=== PATIENT | female | born 2000 | race Caucasian/White ===

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

== ENCOUNTER 2018-11-21 11:40 | Emergency (ER) | payer BC ==
[2018-11-21 12:53] VITALS: BP 105/54
--- NOTE | 2018-11-21 13:09 | UC ---
Throat Pain/Nasal Martínez HPI - HPI Summary HPI Summary: 18-year-old female comes in with a chief complaint of sore throat since last night. Her roommate has been diagnosed with strep throat. Hurts when she swallows. She gargled with salt water which didn't help decrease the pain some. No fevers no runny nose no chest congestion. - History of Current Complaint Chief Complaint: UCGeneralIllness Stated Complaint: SORE THROAT,COUGH Time Seen by Provider: 11/21/18 12:42 Hx Last Menstrual Period: 11/11/18 Pain Intensity: 3 - Allergies/Home Medications Allergies/Adverse Reactions: Allergies Allergy/AdvReac Type Severity Reaction Status Date / Time No Known Allergies Allergy Verified 11/21/18 12:53 PMH/Surg Hx/FS Hx/Imm Hx Previously Healthy: Yes - Surgical History Surgical History: None - Family History Known Family History: Negative: Cardiac Disease, Hypertension - Social History Alcohol Use: Weekly Substance Use Type: None Smoking Status (MU): Never Smoked Tobacco Review of Systems All Other Systems Reviewed And Are Negative: Yes Constitutional: Positive: Negative Skin: Positive: Negative Eyes: Positive: Negative ENT: Positive: Sore Throat Respiratory: Positive: Negative Cardiovascular: Positive: Negative Gastrointestinal: Positive: Negative Motor: Positive: Negative Neurovascular: Positive: Negative Musculoskeletal: Positive: Negative Neurological: Positive: Negative Psychological: Positive: Negative Is Patient Immunocompromised?: No Physical Exam Triage Information Reviewed: Yes Appearance: Well-Appearing, No Pain Distress, Well-Nourished Vital Signs: Initial Vital Signs Temp 98.8 F 11/21/18 12:47 Pulse 82 11/21/18 12:47 Resp 18 11/21/18 12:47 BP 105/54 11/21/18 12:47 Pulse Ox 99 11/21/18 12:47 Vital Signs Reviewed: Yes Eye Exam: Normal Eyes: Positive: Conjunctiva Clear ENT: Positive: Pharyngeal erythema, Uvula midline Neck exam: Normal Neck: Positive: Supple Respiratory: Positive: Lungs clear, Normal breath sounds, No respiratory distress Cardiovascular: Positive: RRR Musculoskeletal Exam: Normal Musculoskeletal: Positive: Strength Intact, ROM Intact Neurological Exam: Normal Neurological: Positive: Alert, Muscle Tone Normal Psychological Exam: Normal Psychological: Positive: Age Appropriate Behavior Skin Exam: Normal Throat Pain/Nasal Course/Dx - Differential Dx/Diagnosis Provider Diagnosis: Strep pharyngitis Discharge - Sign-Out/Discharge Documenting (check all that apply): Patient Departure All imaging exams completed and their final reports reviewed: No Studies - Discharge Plan Condition: Stable Disposition: HOME Prescriptions: Amoxicillin PO (*) [Amoxicillin 875 MG (*)] 875 mg PO BID #20 tab Patient Education Materials: Strep Throat (ED) Referrals: [facility] [Outside] Additional Instructions: FOLLOW UP WITH YOUR DOCTOR IF NOT COMPLETELY IMPROVED. GET RECHECKED SOONER IF YOUR CONDITION WORSENS OR ANY QUESTIONS OR CONCERNS. - Billing Disposition and Condition Condition: STABLE Disposition: Home
== END 2018-11-21 13:12 | disposition home or self-care (01) ==
LOC: UCCORT 11:40
DX: J02.0 Streptococcal pharyngitis (principal); B95.0 Streptococcus, group A, as the cause of diseases classified elsewhere; Z20.828 Contact with and (suspected) exposure to other viral communicable diseases
CPT/HCPCS: 87651; 99212; G0463

== ENCOUNTER 2019-05-18 10:53 | Emergency (ER) | payer BC ==
--- NOTE | 2019-05-18 11:13 | UC ---
FLU HPI - HPI Summary HPI Summary: 18 yo female presents with sore throat. She tells me that over the last 2-3 days she has had fatigue, headache, body aches, and a sore throat. Sore throat worsened last night. She has felt feverish, but has not taken her temperature. Has been taking ibuprofen cold and sinus OTC with little relief. She reports having a decreased appetite, but is tolerating po well. Denies sinus symptoms, cough, rash, SOB, abdominal pain, n/v - History of Current Complaint Stated Complaint: MIGRAINES,CHILLS,ST Time Seen by Provider: 05/18/19 11:12 Hx Obtained From: Patient Hx Last Menstrual Period: 11/11/18 Onset/Duration: Gradual Onset Severity Currently: Moderate Severity Initially: Moderate Pain Intensity: 5 Pain Scale Used: 0-10 Numeric - Allergy/Home Medications Allergies/Adverse Reactions: Allergies Allergy/AdvReac Type Severity Reaction Status Date / Time No Known Allergies Allergy Verified 05/18/19 11:14 Home Medications: Home Medications Cabergoline 0.5 mg PO SEE INSTRUCTIONS 05/18/19 [History Confirmed 05/18/19] Ibuprofen/Pseudoephedrine HCl [Advil Cold & Sinus] 1 tab PO ONCE 05/18/19 [ History Confirmed 05/18/19] PMH/Surg Hx/FS Hx/Imm Hx - Additional Past Medical History Additional PMH: None - Surgical History Surgical History: None - Family History Known Family History: Negative: Cardiac Disease, Hypertension - Social History Occupation: Student Lives: Dormitory/Roommates Alcohol Use: Weekly Substance Use Type: None Smoking Status (MU): Never Smoked Tobacco Review of Systems All Other Systems Reviewed And Are Negative: No Constitutional: Positive: Fatigue, Other - Body aches Skin: Positive: Negative Eyes: Positive: Negative ENT: Positive: Sore Throat Respiratory: Positive: Negative Cardiovascular: Positive: Negative Gastrointestinal: Positive: Negative Musculoskeletal: Positive: Negative Neurological: Positive: Headache Psychological: Positive: Negative Physical Exam - Summary Physical Exam Summary: GENERAL: NAD. WDWN. No pain distress. SKIN: No rashes, sores, lesions, or open wounds. HEENT: Head: AT/NC Eyes: Conjunctiva clear without inflammation or discharge. Ears: Hearing grossly normal. TMs intact, no bulging, erythema, or edema. Nose: Nasal mucosa pink and moist. NTTP maxillary and frontal sinus. Throat: Posterior oropharynx mild erythema and 2+ tonsillar enlargement. No exudates. Uvula midline. No hoarse voice or muffled voice. NECK: Supple. Nontender. No lymphadenopathy. CHEST: CTAB. No r/r/w. No accessory muscle use. Breathing comfortably and in no distress. CV: RRR.. Pulses intact. Cap refill <2seconds NEURO: Alert. PSYCH: Age appropriate behavior. Triage Information Reviewed: Yes Vital Signs: Vital Signs: Temp Pulse Resp BP Pulse Ox 98.6 F 106 16 105/57 99 05/18/19 11:12 05/18/19 11:12 05/18/19 11:12 05/18/19 11:12 05/18/19 11:12 Laboratory Tests 05/18/19 11:16 Group A Strep Rapid Positive A Vital Signs Reviewed: Yes Flu Course/Dx - Course Course Of Treatment: POC strep positive - Differential Dx/Diagnosis Provider Diagnosis: Strep throat Discharge ED - Sign-Out/Discharge Documenting (check all that apply): Patient Departure All imaging exams completed and their final reports reviewed: No Studies - Discharge Plan Condition: Stable Disposition: HOME Prescriptions: Amoxicillin PO (*) [Amoxicillin 500 MG CAP*] 500 mg PO Q12H #20 cap Patient Education Materials: Strep Throat (ED) Forms: *School Release Referrals: No Primary Care Phys,NOPCP [Primary Care Provider] - Additional Instructions: If you develop a fever, shortness of breath, chest pain, new or worsening symptoms - please call your PCP or go to the ED immediately. - Billing Disposition and Condition Condition: STABLE Disposition: Home
[2019-05-18 11:15] VITALS: BP 105/57
== END 2019-05-18 11:27 | disposition home or self-care (01) ==
LOC: UCCORT 10:53
DX: J02.0 Streptococcal pharyngitis (principal); R53.83 Other fatigue; R51 Headache
CPT/HCPCS: 87651; 99212; G0463

== ENCOUNTER 2019-05-27 09:50 | Emergency (ER) | payer BC ==
[2019-05-27 10:29] VITALS: BP 107/55
--- NOTE | 2019-05-27 10:47 | UC ---
Lower Extremity/Ankle HPI - HPI Summary HPI Summary: Pt c/o sudden onset of posterior thigh pain while "stretching" for dance class yesterday morning. Pt states that pain radiates from upper posterior left leg to knee and calf. that the area feels hot and cold alternating and is very painful to walk at times. - History of Current Complaint Chief Complaint: UCLowerExtremity Stated Complaint: LEFT HAMSTRING INJURY Time Seen by Provider: 05/27/19 10:34 Hx Obtained From: Patient Hx Last Menstrual Period: 05/22/19 ?: No Onset/Duration: Sudden Onset, Still Present Severity Initially: Moderate Severity Currently: Moderate Pain Intensity: 8 Aggravating Factor(s): Standing, Ambulation Alleviating Factor(s): Rest Able to Bear Weight: Yes - painful - Risk Factors Gout Risk Factors: Negative DVT Risk Factors: Negative Septic Arthritis Risk Factor: Negative - Allergies/Home Medications Allergies/Adverse Reactions: Allergies Allergy/AdvReac Type Severity Reaction Status Date / Time No Known Allergies Allergy Verified 05/27/19 10:19 PMH/Surg Hx/FS Hx/Imm Hx Previously Healthy: Yes - Surgical History Surgical History: Yes Surgery Procedure, Year, and Place: wisdom teeth extractions - Family History Known Family History: Negative: Cardiac Disease, Hypertension - Social History Occupation: Student Lives: Dormitory/Roommates Alcohol Use: Weekly Alcohol Amount: weekends Substance Use Type: None Smoking Status (MU): Never Smoked Tobacco Have You Smoked in the Last Year: No - Immunization History Vaccination Up to Date: Yes Review of Systems All Other Systems Reviewed And Are Negative: Yes Constitutional: Positive: Negative Skin: Positive: Negative Eyes: Positive: Negative ENT: Positive: Negative Respiratory: Positive: Negative Cardiovascular: Positive: Negative Gastrointestinal: Positive: Negative Genitourinary: Positive: Negative Motor: Positive: Decreased ROM - painful ROM left upper leg/thigh Neurovascular: Positive: Negative Musculoskeletal: Positive: Myalgia - left posterior thigh Neurological: Positive: Negative Psychological: Positive: Negative Is Patient Immunocompromised?: No Physical Exam Triage Information Reviewed: Yes Appearance: Well-Appearing Vital Signs: Initial Vital Signs Temp 97.9 F 05/27/19 10:20 Pulse 67 05/27/19 10:20 Resp 16 05/27/19 10:20 BP 107/55 05/27/19 10:20 Pulse Ox 99 05/27/19 10:20 Vital Signs Reviewed: Yes Eye Exam: Normal ENT Exam: Normal Dental Exam: Normal Neck exam: Normal Respiratory Exam: Normal Respiratory: Positive: No respiratory distress Musculoskeletal: Positive: Strength Intact, ROM Intact, No Edema Neurological Exam: Normal Psychological Exam: Normal Skin Exam: Normal Lower Extremity Course/Dx - Differential Dx/Diagnosis Differential Diagnosis/HQI/PQRI: Sprain, Strain Provider Diagnosis: Left hamstring muscle strain Discharge ED - Sign-Out/Discharge Documenting (check all that apply): Patient Departure All imaging exams completed and their final reports reviewed: No Studies - Discharge Plan Condition: Stable Disposition: HOME Prescriptions: Cyclobenzaprine TAB* [Flexeril 10 MG TAB*] 10 mg PO BEDTIME PRN #4 tab PRN Reason: Pain - Mild Patient Education Materials: Hamstring Exercises (GEN), Hamstring Injury (ED) Forms: *Work Release Referrals: [facility] [place] [facility] [Outside] - If Needed Seemant,Jackeline, [Medical Doctor] - If Needed No Primary Care Phys,NOPCP [Primary Care Provider] - Additional Instructions: No dance or physical activity until injury has improved. Please follow up with physical therapy, sports medicine and/or the training services at [facility] - Billing Disposition and Condition Condition: STABLE Disposition: Home - Attestation Statements Provider Attestation: This patient was not seen by me I was available for consult Chart reviewed MATT
== END 2019-05-27 10:58 | disposition home or self-care (01) ==
LOC: UCCORT 09:50
DX: S76.312A Strain of muscle, fascia and tendon of the posterior muscle group at thigh level, left thigh, initial encounter (principal); X50.9XXA Other and unspecified overexertion or strenuous movements or postures, initial encounter; Y92.838 Other recreation area as the place of occurrence of the external cause
CPT/HCPCS: 99211; G0463